=== PATIENT | male | born 1985 | race African-American/Black ===

== ENCOUNTER → 2018-08-07 | Outpatient (CLI) | payer OTHER | LOC: COL.VAS 08:51 | DX: R06.02 Shortness of breath (principal) | CPT/HCPCS: J7674 ==

== ENCOUNTER → 2020-05-11 | Outpatient (CLI) | payer OTHER | LOC: COL.PUL 04-07 13:00 | DX: R06.02 Shortness of breath (principal) ==

== ENCOUNTER → 2022-01-23 | Outpatient (CLI) | payer OTHER | LOC: MHCPAIN 08:40 | DX: M54.50 Low back pain, unspecified (principal); M53.3 Sacrococcygeal disorders, not elsewhere classified; M79.18 Myalgia, other site | CPT/HCPCS: G0463 ==

== ENCOUNTER → 2022-11-23 | Outpatient (CLI) | payer OTHER | LOC: COL.RAD 11:21 | DX: M40.202 Unspecified kyphosis, cervical region (principal); M40.50 Lordosis, unspecified, site unspecified ==

== ENCOUNTER 2023-04-02 13:15 | Outpatient (RCR) | payer OTHER | END 2023-07-05 09:01 | disposition home or self-care (01) | LOC: WSST | DX: G89.29 Other chronic pain (principal); M54.2 Cervicalgia; M54.9 Dorsalgia, unspecified; R41.89 Other symptoms and signs involving cognitive functions and awareness; S06.89AS Other specified intracranial injury with loss of consciousness status unknown, sequela; Z87.820 Personal history of traumatic brain injury ==

== ENCOUNTER 2023-04-22 10:30 | Outpatient (RCR) | payer OTHER | END 2023-05-04 | disposition home or self-care (01) | LOC: MKS.ESL.PT | DX: R41.89 Other symptoms and signs involving cognitive functions and awareness (principal); S06.89AS Other specified intracranial injury with loss of consciousness status unknown, sequela ==